=== PATIENT | female | born 1975 | race Caucasian/White ===

== ENCOUNTER → 2017-08-10 | Outpatient (CLI) | payer BC, OTHER ==
[~2017-08-10] MED LIST: ADDERALL10 MG PO; AMBIEN10 MG PO; BALANCE B-501 EAC1 PO; CHANTIX1 MG PO; HYDROCODON-ACE1 EAC7 PO
== END | disposition home or self-care (01) ==
LOC: CDC 15:45
DX: Z01.810 Encounter for preprocedural cardiovascular examination (principal); C50.411 Malignant neoplasm of upper-outer quadrant of right female breast
CPT/HCPCS: 93000

== ENCOUNTER 2017-08-12 06:12 | Day surgery (SDC) | payer BC, OTHER ==
[~2017-08-12] VITALS: Ht 162.6 cm; Wt 73.5 kg
[~2017-08-12 06:12] MED LIST changes: -HYDROCODON-ACE1 EAC7 PO
[2017-08-12 06:57] VITALS: BP 127/68
[2017-08-12] MEDS ORDERED: HYDROCODON-ACE1 EAC7 PO (13:28)
[2017-08-12 14:45] VITALS: BP 115/64
[2017-08-12 15:33] VITALS: BP 113/60
== END 2017-08-12 15:45 | disposition home or self-care (01) ==
LOC: SDC → NUC 06:12 → SDC 06:12
PROC: 0HBT0ZZ Excision of Right Breast, Open Approach (ICD-10-PCS; principal; 2017-08-12)
PROC: 07B50ZX Excision of Right Axillary Lymphatic, Open Approach, Diagnostic (ICD-10-PCS; principal; 2017-08-12)
DX: C50.411 Malignant neoplasm of upper-outer quadrant of right female breast (principal); Z17.0 Estrogen receptor positive status [ER+]; F17.200 Nicotine dependence, unspecified, uncomplicated
CPT/HCPCS: 78195; 78999; 88305; 88307; A9541; J0690; J1100; J1170; J1885; J2250; J2405; J3010; S0020

== ENCOUNTER 2017-10-05 06:40 | Day surgery (SDC) | payer BC, OTHER ==
[~2017-10-05] VITALS: Ht 162.6 cm; Wt 73.0 kg
[~2017-10-05 06:40] MED LIST changes: +HYDROCODON-ACE1 EAC7 PO
[2017-10-05 07:15] VITALS: BP 108/69
[2017-10-05 10:55] VITALS: BP 109/63
[2017-10-05 11:39] VITALS: BP 115/67
== END 2017-10-05 11:50 | disposition home or self-care (01) ==
LOC: SDC 06:40
DX: Z40.02 Encounter for prophylactic removal of ovary(s) (principal); Z85.3 Personal history of malignant neoplasm of breast; Z17.0 Estrogen receptor positive status [ER+]; N83.201 Unspecified ovarian cyst, right side; N83.12 Corpus luteum cyst of left ovary; K66.0 Peritoneal adhesions (postprocedural) (postinfection); Z90.11 Acquired absence of right breast and nipple; F41.9 Anxiety disorder, unspecified; F98.8 Other specified behavioral and emotional disorders with onset usually occurring in childhood and adolescence; F17.210 Nicotine dependence, cigarettes, uncomplicated; Z80.3 Family history of malignant neoplasm of breast; Z80.8 Family history of malignant neoplasm of other organs or systems; Z80.52 Family history of malignant neoplasm of bladder
CPT/HCPCS: 86850; 86900; 86901; 88305; J0131; J0690; J1100; J1170; J1885; J2250; J2405; J2710; J2765; J3010; J7643; S0020